=== PATIENT | female | born 1945 | race Caucasian/White ===

== ENCOUNTER → 2017-05-16 | Outpatient (CLI) | payer OTHER, BC ==
[~2017-05-16] VITALS: Ht 160 cm; Wt 63.5 kg
[~2017-05-16] MED LIST: CENTRUM SILVER1 EAC4 PO; FISH OIL 1,001000 M2 PO; GLUCOSAMINE CH1 EAC2 PO; TIMOPTIC 0.5%1 EACH OPHTHALMIC
--- NOTE | ~2017-05-16 | P ---
[facility] [place] [address] PROCEDURE REPORT Name: ISRAEL STEINER Dayan Room #: REG [facility]#: [id number] Admission: 05/16/17 Attend Phys: Gama Horton MD Discharge: Date of : 47 Report #: [id number] THIS REPORT FOR: //name// CC: Abundio Horton BRIEF HISTORY: The patient is a 72-year-old woman with a family history of colon cancer in a grandfather when he was in his 50s. She also has a personal history of colon polyps. PREOPERATIVE DIAGNOSIS: Personal history of colon polyps. POSTOPERATIVE DIAGNOSIS: Diminutive colon polyps. MEDICATIONS: Deep sedation with propofol per anesthesia. SPECIMENS: 1. Diminutive proximal ascending colon polyp. 2. Diminutive hepatic flexure polyp. ESTIMATED BLOOD LOSS: 3 mL. PROCEDURE: Colonoscopy to cecum and terminal ileum with biopsy. With the patient in left lateral decubitus position, digital examination was completed, which revealed no abnormalities. Subsequently, the Datumate video colonoscope was introduced in the rectum and advanced under direct vision to the cecum. Done with minimal difficulty. The cecum was identified by the ileocecal valve and the appendiceal orifice. I was able to visualize the distal segment of terminal ileum, which was inspected and noted to be unremarkable. At that point, scope was slowly withdrawn and careful circumferential views obtained including retroflexing the scope in the ascending colon. Upon slow withdrawal of the scope, the prep was good. The mucosa was within normal limits, normal vascular pattern, and normal light reflex. As we withdrew the scope, diminutive polyps were seen in the proximal ascending colon and hepatic flexure, both were removed with biopsy forceps. As we withdrew the scope further, no additional polyps were seen. No other abnormalities were seen during the remainder of the exam. The remainder of the colonic mucosa was normal. Scope was withdrawn in the rectum. Upon retroflexion, no abnormalities were seen. Scope was withdrawn. The patient tolerated the procedure well. CONDITION OF THE PATIENT UPON DISCHARGE: Following procedure, the patient is drowsy, aroused, conversant and will be discharged home when fully ambulatory. INSTRUCTIONS TO THE PATIENT AND FAMILY AT THE TIME OF DISCHARGE: We will follow up on the path report. If one or both polyps are adenomas, then she should [address] [address] PROCEDURE REPORT Name: ISRAEL STEINER [id number] Admission: 05/16/17 Attend Phys: Gama Horton MD Discharge: Date of : 47 Report #: [id number] return in 5 years; neoplastic, then 10 years would be indicated. She will otherwise return to care of Dr. Harvey and return to see me as needed. Last colonoscopy was 5 years ago. Withdrawal time from cecum was 14 minutes 56 seconds. <ELECTRONICALLY SIGNED> By: Gama Horton MD 05/16/172031 1219 1433 Gama Horton MD /nt
--- NOTE | ~2017-05-16 | S ---
[facility] [place] [address] SURGICAL PATH RPT PROCEDURE Name: ISRAEL STEINER Room #: REG [facility]#: [id number] Admission: 05/16/17 Date of : 47 Discharge: Report #: [id number] Path Case #: [id number] PATHOLOGY REPORT COLLECTION DATE: 05/16/2017 RECEIVED DATE: 05/17/2017 SUBMITTING PHYS: Dr. Gama Horton OTHER PHYS: Dr. Abundio Harvey SPECIMEN(S) RECEIVED: A.Polyp at proximal ascending colon B.Polyp at hepatic flexure * * * * * * * * * * * * FINAL DIAGNOSIS: A. Polyp, proximal ascending colon, endoscopic biopsy: - Tubular adenoma. - Negative for high-grade dysplasia. B. Polyp, at hepatic flexure, endoscopic biopsy: - Tubular adenoma. - Negative for high-grade dysplasia. (IUV:pit; 05/18/2017) PATHOLOGIST: Ly Rai M.D. REPORT ELECTRONICALLY SIGNED BY: Ly Rai M.D. DATE/TIME: 05/18/2017 14:54 * * * * * * * * * * * * GROSS PATHOLOGY: A. Received in formalin labeled "Israel Steiner, polyp at proximal ascending colon" and consists of 3 soft augustine tissue fragments each averaging 0.2 cm which are entirely submitted as A1. B. Received in formalin labeled "Israel Steiner, BX at hepatic flexure" and consists of a 0.3 cm soft augustine tissue fragment which is entirely submitted as B1. (LIZA; 05/17/2017) CLINICAL HISTORY: History of polyps Colon polyp INITIAL CPT CODE(S): A; 22723 B; 03251 Professional services performed by [facility] at [facility] [address] [place] [address] SURGICAL PATH RPT PROCEDURE Name: ISRAEL STEINER Room #: REG [facility] [place]#: [id number] Admission: 05/16/17 Date of : 47 Discharge: Report #: [id number] Path Case #: [id number] [address], [place] [address] Technical services performed by [facility] at [address] [place] [address], [facility] [address] [address]. [facility] [address] [place] [address] PHONE: [phone] DIRECTOR: Duncan Dillon M.D. * * * END OF REPORT * * *
== END | disposition home or self-care (01) ==
LOC: GI 09:50
DX: Z09 Encounter for follow-up examination after completed treatment for conditions other than malignant neoplasm (principal); D12.2 Benign neoplasm of ascending colon; D12.3 Benign neoplasm of transverse colon; Z80.0 Family history of malignant neoplasm of digestive organs; Z86.010 Personal history of colon polyps; Z98.890 Other specified postprocedural states; Z79.899 Other long term (current) drug therapy
CPT/HCPCS: 62110; 62900